=== PATIENT | female | born 1950 | race Caucasian/White ===

== ENCOUNTER 2019-02-20 11:20 | Emergency (ER) | payer MEDICARE ==
[2019-02-20 12:25] LABS: #Eosinphils 0.1 thou/uL (0.0-0.7); #Lymphocytes 0.7 thou/uL (1.20-3.40); #Monocytes 0.5 thou/uL (0.11-0.59); #Neutrophils 3.6 thou/uL (1.40-6.50); %Basophils 0.6 % (0.0-1.0); %Eosinophils 2.1 % (0.0-10.0); %Lymphocytes 14.8 % (21.0-51.0); %Monocytes 9.1 % (0.0-10.0); %Neutrophils 73.5 % (42.0-75.0); Hemoglobin 11.3 g/dL (12.0-16.0); Mean Corpuscular HGB CONC 33.4 g/dL (32.0-36.0); Mean Corpuscular Hemoglobin 30.8 pg (27.0-31.0); Mean Corpuscular Volume 92.1 fL (78.0-98.0); Mean Platelet Volume 8.5 fL (7.4-10.4); Platelet Count 205 thou/uL (130-400); RBC Distribution Width 14.7 % (11.5-14.5); Red Blood Cell (RBC) Count 3.68 mill/uL (4.20-5.40); White Blood Cell (WBC) Count 4.9 thou/uL (4.8-10.8)
[2019-02-20 12:48] LABS: ALT (SGPT) 9 U/L (8-55); AST (SGOT) 16 U/L (5-34); Albumin 3.5 g/dL (3.4-4.8); Alkaline Phosphatase 100 U/L (40-110); Anion Gap 11 mmol/L (10-20); BUN (Urea Nitrogen) 18 mg/dL (9.8-20.1); Bilirubin, Total 0.4 mg/dL (0.2-1.2); CK (CPK) 30 U/L (29-168); Calc. Creatinine Clearance 0 mL/min (70-130); Calcium 9.6 mg/dL (7.8-10.44); Carbon Dioxide 32 mmol/L (23-31); Chloride 102 mmol/L (98-107); Estimated GFR-MDRD 76; Globulin 3.4 g/dL (2.4-3.5); Glucose 85 mg/dL (80-115); Protein, Total 6.9 g/dL (6.0-8.3); Sodium 141 mmol/L (136-145)
== END 2019-02-20 14:22 | disposition home or self-care (01) ==
LOC: ERS 11:20
DX: G62.9 Polyneuropathy, unspecified (principal); M19.90 Unspecified osteoarthritis, unspecified site
CPT/HCPCS: 36415; 80053; 82550; 83735; 85025; 99283

== ENCOUNTER 2021-01-30 06:02 | Day surgery (SDC) | payer MEDICARE, MEDICAID ==
[2021-01-29 11:21] VITALS: BMI 40.6
[2021-01-30] MEDS ORDERED: Fentanyl 100 MCG/2 ML VIAL ONE (06:23)
[2021-01-30] MEDS ORDERED: PROPOFOL 20 ML ONE (06:23)
[2021-01-30] MEDS ORDERED: Midazolam HCl 2 mg/2 ml Vial ONE (06:23)
[2021-01-30] MEDS ORDERED: Fluorouracil 100 MG, Enoxaparin Sodium 25 MG, EPINEPHrine 0.3 MG in Ophthalmic Irrigati... IRR SCH (06:30)
[2021-01-30] MEDS ORDERED: Phenylephrine 2.5% Ophth Soln 5 ML BOT FS SCH (06:30)
[2021-01-30] MEDS ORDERED: Cyclopentolate 1% Opth Drop 2 ML BOT FS SCH (06:30)
[2021-01-30] MEDS ORDERED: Cyclopentolate 1% Opth Drop 2 ML BOT ONE (08:40)
[2021-01-30] MEDS ORDERED: Phenylephrine 2.5% Ophth Soln 5 ML BOT ONE (08:40)
== END 2021-01-30 10:52 | disposition short-term general hospital (02) ==
LOC: SDC 06:02
PROVIDERS: ATTEND Ophthalmology Retina Specialist
PROC: 08T53ZZ Resection of Left Vitreous, Percutaneous Approach (ICD-10-PCS; principal; 2021-01-30)
PROC: 08NF3ZZ Release Left Retina, Percutaneous Approach (ICD-10-PCS; 2021-01-30)
DX: H35.372 Puckering of macula, left eye (principal); H43.822 Vitreomacular adhesion, left eye; Z79.899 Other long term (current) drug therapy; Z88.0 Allergy status to penicillin; Z88.1 Allergy status to other antibiotic agents; Z88.2 Allergy status to sulfonamides
CPT/HCPCS: 67025; J0171; J1650; J2250; J2704; J3010; J9190